=== PATIENT | male | born 1970 | race Caucasian/White ===

== ENCOUNTER → 2018-07-27 | Outpatient (CLI) | payer OTHER | END | disposition home or self-care (01) | LOC: RAD 16:00 | PROVIDERS: ATTEND Neurological Surgery | DX: M48.062 Spinal stenosis, lumbar region with neurogenic claudication (principal); M53.2X6 Spinal instabilities, lumbar region; M89.38 Hypertrophy of bone, other site; Z98.890 Other specified postprocedural states | CPT/HCPCS: 72120; 72131 ==

== ENCOUNTER 2018-10-20 06:47 | Day surgery (SDC) | payer OTHER ==
[~2018-10-20] VITALS: Ht 180.3 cm; Wt 93.3 kg
[2018-10-20] MEDS ORDERED: LACTATED RINGERS 1,000 ML IV SCH (08:03)
[2018-10-20] MEDS ORDERED: RANI150T4 PO (08:09)
[2018-10-20] MEDS ORDERED: CARB1TAB22 PO (08:09)
[2018-10-20] MEDS ORDERED: MELO7.5T31 PO (08:09)
[2018-10-20] MEDS ORDERED: SIMV10TA3 PO (08:09)
[2018-10-20] MEDS ORDERED: DULO20CA45 PO (08:09)
[2018-10-20] MEDS ORDERED: ACET-1600 PO (08:09)
[2018-10-20] MEDS ORDERED: TOPI100T8 PO (08:09)
[2018-10-20] MEDS ORDERED: MIDAZOLAM 1 MG/ML, 2ML ONE (08:10)
[2018-10-20] MEDS ORDERED: FENTANYL PF 250 MCG/5ML ONE (08:10)
[2018-10-20 08:16] VITALS: BP 133/84
[2018-10-20] MEDS ORDERED: PLEASE ENTER HEIGHT AND WEIGHT MC SCH (08:30)
[2018-10-20] MEDS ORDERED: BUPIVACAINE/PF-EPI 0.5% 1:200K ONE (09:12)
[2018-10-20] MEDS ORDERED: BACITRACIN 50,000 UNIT ONE (09:12)
[2018-10-20] MEDS ORDERED: THROMBIN 5,000 UNIT VIAL TP ONE (09:13)
[2018-10-20] MEDS ORDERED: GLYCOPYRROLATE 0.2MG/1ML, 5ML ONE (09:19)
[2018-10-20] MEDS ORDERED: KETAMINE 100 MG/ML, 5ML ONE (09:19)
[2018-10-20] MEDS ORDERED: ONDANSETRON 2MG/ML, 2ML ONE (09:19)
[2018-10-20] MEDS ORDERED: NEOSTIGMINE 1 MG/ML, 10ML ONE (09:19)
[2018-10-20] MEDS ORDERED: WATER-INJECTION,STERILE 10 ML IV ONE (10:03)
[2018-10-20] MEDS ORDERED: CEFAZOLIN 1,000 MG ONE (10:03)
[2018-10-20] MEDS ORDERED: LIDOCAINE-MPF 2% ,5ML ONE (10:03)
[2018-10-20] MEDS ORDERED: ROCURONIUM 10MG/ML,5ML ONE (10:03)
[2018-10-20] MEDS ORDERED: PROPOFOL 10 MG/ML, 20ML ONE (10:03)
[2018-10-20] MEDS ORDERED: DEXAMETHASONE 4 MG/ML, 1ML ONE (10:03)
[2018-10-20] MEDS ORDERED: PHENYLEPHRINE 10 MG/ML ONE (10:03)
[2018-10-20] MEDS ORDERED: OXYcodone 5 MG/5 ML ORAL.SOL UDC PO PRN (10:30)
[2018-10-20] MEDS ORDERED: PROMETHAZINE 25 MG/ML, 1ML IV PRN (10:30)
[2018-10-20] MEDS ORDERED: hydrALAzine 20 MG/ML, 1ML IV PRN (10:30)
[2018-10-20] MEDS ORDERED: HALOPERIDOL 5 MG/ML IV PRN (10:30)
[2018-10-20] MEDS ORDERED: HYDROmorphone 2 MG/ML, 1ML IVPush PRN (10:30)
[2018-10-20] MEDS ORDERED: FENTANYL PF 100 MCG/2ML IV PRN (10:30)
[2018-10-20] MEDS ORDERED: ACETAMINOPHEN 325 MG TABLET PO PRN (10:30)
[2018-10-20] MEDS ORDERED: HYDROcodone/APAP 7.5-325MG/15ML UDC ONE (11:04)
[2018-10-20] MEDS ORDERED: HYDROcodone/APAP 7.5-325MG/15ML UDC PO PRN (11:30)
== END 2018-10-20 14:10 | disposition home or self-care (01) ==
LOC: OUT 06:47
PROVIDERS: ATTEND Neurological Surgery
DX: M48.061 Spinal stenosis, lumbar region without neurogenic claudication (principal); M54.16 Radiculopathy, lumbar region; K21.9 Gastro-esophageal reflux disease without esophagitis; Z88.6 Allergy status to analgesic agent; Z86.14 Personal history of Methicillin resistant Staphylococcus aureus infection
CPT/HCPCS: 63047; 63048; 72100; J0690; J1100; J2250; J2370; J2405; J2704; J2710; J3010; J3490; J7120